=== PATIENT | female | born 1935 ===

== ENCOUNTER 2021-03-28 09:14 | Outpatient (CLI) | payer OTHER ==
[~2021-03-28 09:14] MED LIST: NABUMETONE500 MG PO; NORVASC5 MG; PERCOCET 5/3251 TAB PO; ZESTRIL20 MG; ZIAC 10/6.25 MG1 TAB
== END 2021-03-28 09:19 | disposition home or self-care (01) ==
LOC: SONOGRAMA 09:14
PROVIDERS: ATTEND Pathology Anatomic Pathology & Clinical Pathology
DX: D34 Benign neoplasm of thyroid gland (principal); E04.1 Nontoxic single thyroid nodule; E04.8 Other specified nontoxic goiter